=== PATIENT | male | born 1960 | race Hispanic/Latino ===

== ENCOUNTER 2023-10-31 05:55 | Day surgery (SDC) | payer OTHER ==
[2023-10-29 09:26] LABS: BASOPHILS # (AUTO) 0.05 K/uL (0.00-0.20); BASOPHILS % (AUTO) 0.5 % (0.0-5.0); EOSINOPHILS # (AUTO) 0.17 K/uL (0.00-0.70); EOSINOPHILS % (AUTO) 1.8 % (0.0-8.0); HEMATOCRIT 49.3 % (42-54); IMMATURE GRANULOCYTE ABSOLUTE 0.06 K/uL (0-1); LYMPHOCYTES # (AUTO) 3.2 K/uL (1.0-4.8); MEAN CORPUSCULAR HEMOGLOBIN 29.9 pg (27.0-33.0); MEAN CORPUSCULAR HGB CONC 33.5 g/dL (32.0-36.0); MEAN CORPUSCULAR VOLUME 89.3 fL (79-99); MONOCYTES # (AUTO) 0.9 K/uL (0.1-1.0); MONOCYTES % (AUTO) 9.8 % (3.0-13.0); NEUTROPHILS % (AUTO) 53.3 % (40.0-77.0); PLATELET COUNT (AUTO) 212 K/uL (130-400); RED BLOOD CELL COUNT(AUTO) 5.52 MIL/uL (4.50-6.20); RED CELL DISTRIBUTION WIDTH 12.3 % (11.0-15.5); WHITE BLOOD COUNT (AUTO) 9.3 K/uL (4.8-10.8)
[2023-10-29 09:35] LABS: POTASSIUM 4.5 mmol/L (3.5-5.1)
[2023-10-29 09:37] LABS: INR < 0.93 (0.85-1.15); PROTHROMBIN TIME 10.8 SEC (9.6-11.6)
[2023-10-29 09:38] LABS: PARTIAL THROMBOPLASTIN TIME 31.9 SEC (26.3-35.5)
[2023-10-29 10:03] VITALS: BP 144/82; PULSE 70; RESP 17
[2023-10-31] VITALS (19 sets, daily range): BP systolic 124–155; BP diastolic 64–91; PULSE 57–77; RESP 11–21
[~2023-10-31] VITALS: Ht 180.3 cm; Wt 95.3 kg
[~2023-10-31 05:55] MED LIST: NAPR-1023 PO; OMEP40CA21 PO
[2023-10-31] MEDS ORDERED: LACTATED RINGERS 1000ML 1,000 ML IV ONE (06:17)
[2023-10-31] MEDS ORDERED: CEFAZOLIN SODIUM 2 GM VIAL ONE (06:17)
[2023-10-31] MEDS ORDERED: MIDAZOLAM HCL 1 MG/ML 2ML VIAL ONE (06:48)
[2023-10-31] MEDS ORDERED: FENTANYL CITRATE PF 50 MCG/1 ML 5ML AMP IV ONE (06:49)
[2023-10-31] MEDS ORDERED: PROPOFOL 10 MG/ML 20ML VIAL IV ONE (06:49)
[2023-10-31] MEDS ORDERED: EPINEPHRINE PF 1MG (1:1,000) 1 MG/ML AMP ONE (06:55)
[2023-10-31] MEDS ORDERED: ROPIVACAINE 0.5% 5MG/ML 30ML ONE (07:01)
[2023-10-31] MEDS ORDERED: ROCURONIUM BROMIDE 10MG/1ML 5ML VL ONE ×3 (07:01→07:58)
[2023-10-31] MEDS ORDERED: GLYCOPYRROLATE 0.2 MG/ML 5 ML VIAL ONE (09:59)
[2023-10-31] MEDS ORDERED: FENTANYL CITRATE PF 50 MCG/1 ML 2ML VIAL ONE (09:59)
[2023-10-31] MEDS ORDERED: NEOSTIGMINE METHYLSULFATE 1MG/ML IV ONE (09:59)
[2023-10-31] MEDS ORDERED: HYDR-4060 PO (10:08)
== END 2023-10-31 12:10 | disposition home or self-care (01) ==
LOC: DAH 05:55
PROVIDERS: ATTEND Student in an Organized Health Care Education/Training Program
DX: M75.21 Bicipital tendinitis, right shoulder (principal); M75.111 Incomplete rotator cuff tear or rupture of right shoulder, not specified as traumatic; M19.011 Primary osteoarthritis, right shoulder; M94.211 Chondromalacia, right shoulder; M77.8 Other enthesopathies, not elsewhere classified; M75.41 Impingement syndrome of right shoulder; K21.9 Gastro-esophageal reflux disease without esophagitis; E66.9 Obesity, unspecified; Z68.28 Body mass index [BMI] 28.0-28.9, adult; Z79.01 Long term (current) use of anticoagulants
CPT/HCPCS: 80048; 85025; 85610; 85730; 36415; 29828; 64415; 29826; 29824; J7030; A4565; A4452; J7120; J3010 ×2; J3490 ×3; J0171; J2250; J2704; J2710; J2795; J0690; A6223; A4215; A4223; A4213; A4222; A4221; A4663; C1713; A4600

== ENCOUNTER → 2024-01-26 | Outpatient (CLI) | payer OTHER ==
[~2024-01-26] MED LIST changes: +HYDR-4060 PO
== END | disposition home or self-care (01) ==
LOC: RAH 14:05
PROVIDERS: ATTEND Student in an Organized Health Care Education/Training Program
DX: M19.011 Primary osteoarthritis, right shoulder (principal); M75.21 Bicipital tendinitis, right shoulder
CPT/HCPCS: 73221

== ENCOUNTER → 2024-03-17 | Outpatient (CLI) | payer OTHER ==
[~2024-03-17] MED LIST changes: +IOHEXOL 350 MG/ML 100ML INFUS..BTL IV ONE
== END | disposition home or self-care (01) ==
LOC: RAH 10:04
PROVIDERS: ATTEND Family Medicine
DX: S09.90XA Unspecified injury of head, initial encounter (principal); R42 Dizziness and giddiness; X58.XXXA Exposure to other specified factors, initial encounter; Y93.89 Activity, other specified; Y92.89 Other specified places as the place of occurrence of the external cause; Y99.8 Other external cause status
CPT/HCPCS: 70470; Q9967